=== PATIENT | female | born 1965 | race Caucasian/White ===

== ENCOUNTER → 2019-03-27 11:04 | Outpatient (CLI) | payer OTHER, SELFPAY ==
[2019-03-27 12:32] LABS: Add Manual Diff / Slide Review NO; Basophils Absolute Auto 0 /uL (0-100); Basophils Percent Auto 0.5 % (0-2); Eosinophils Absolute Auto 200 /uL (0-450); Hematocrit 39.5 % (36-46); Hemoglobin 13.5 g/dL (12.0-16.0); Lymphocytes Absolute Auto 2400 /uL (1100-4500); Lymphocytes Percent Auto 32.1 % (25-40); Mean Corpuscular HGB Conc 34.3 % (30-36); Mean Corpuscular Hemoglobin 32.4 PG (26-34); Mean Corpuscular Volume 94.5 fL (80-100); Monocytes Absolute Auto 600 /uL (0-900); Monocytes Percent Auto 7.7 % (3-14); Neutrophils Absolute Auto 4300 /uL (1500-7000); Neutrophils Percent Auto 56.7 % (50-75); Platelet Count 253 X10^3/uL (150-400); Red Blood Cell Count 4.18 X10^6/uL (4.0-5.2); Red Cell Distribution Width 13.7 % (11.6-14.8); White Blood Cell Count 7.5 X10^3/uL (4.5-11.0)
[2019-03-27 12:37] LABS: C-Reactive Protein Quant 0.8 mg/dL (<1.0); Uric Acid 4.5 mg/dL (2.5-6.2)
[2019-03-27 12:38] LABS: Rheumatoid Factor < 8.6 IU/mL (<12.0)
[2019-03-27 12:52] LABS: Erythrocyte Sedimentation Rate 18 MM/HR (0-20)
[2019-03-31 15:08] LABS: ANA Screen, IFA NEGATIVE (NEGATIVE)
== END ==
PROVIDERS: PCP Internal Medicine; Referring Provider Internal Medicine; Visit Provider Internal Medicine
DX: M25.50 Pain in unspecified joint (principal)
CPT/HCPCS: 36415; 84550; 85025; 85651; 86038; 86140; 86430